=== PATIENT | male | born 1950 | race Two or more races ===

== ENCOUNTER → 2024-04-24 | Outpatient (CLI) | payer OTHER ==
--- NOTE | 2024-04-24 13:17 | DVHCARD ---
Cardiology Stress Test [place] Treadmill Stress Test [place] Referring MD: MD Charly Protocol: Bhavin (with cardiolite) Reason for referral: Chest Pain Target heart Rate:@85%: 124 Percent MPHR: 147 METS: 10.10 Resting Heart rate: 57 Resting Blood Pressure: 150/95 Exercise Heart Rate: 144 Exercise Blood Pressure: 184/75 Baseline EKG: Sinus bradycardia Stress EKG: Sinus tachycardia Functional Capacity: Good Normal Heart Rate Response: Adequate Blood Pressure Response: Hypertensive Clinical response: Non-ischemic Arrhythmia?: Yes (PACs) Cardiolite Injected?: Yes ST-T Changes: Non/Minimal Probability of Inducible Ische: Perfusion result pending Date of Service: Apr 24, 2024 Billing Provider: MARICRUZ ACKERMAN MD Cardiology Common Codes: PROCEDURE ONLY Treadmill W/Cardiolite Nuclear: [id number], [id number], PROMISE HANCOCK Apr 24, 2024 13:17
--- NOTE | 2024-04-24 22:31 | DVHSR ---
APPROVED REPORT Exam: Nuclear Stress Test Indication: Chest pain BMI: 0 Medical History Medical History: HTN Stress Test Details Stress Test: Exercise stress testing was performed using a Bhavin protocol. HR Resting HR: 57 bpmMax Heart Rate (APMHR): 147.784515 bpm Max HR Achieved: 144 bpmTarget HR (85% APMHR): 124.218924 bpm % of APMHR: 97.96 Recovery HR: 95 bpm BP Resting BP: 150/95 mmHg Recovery BP: 124/78 mmHg ECG Resting ECG: Sinus Bradycardia Clinical Reason for Termination: Completed protocol Exercise capacity: 10.10 METs Stress ECG Conclusion Resting ECG shows normal sinus rhythm. At peak stress level no dynamic EKG changes was noted to sugg est ischemia patient was able to exercise on standard Bhavin protocol reaching almost 8 minutes of tot al time.. Resting images shows near homogeneous uptake of radioactive tracer throughout the myocardium without evidence of myocardial infarction. Stress images shows near homogeneous uptake of radioactive tracer throughout the myocardium without e vidence of myocardial ischemia. Well-preserved left ventricular systolic function at 67%. Impression: Negative stress test for ischemia, low risk study. NM EXAM: Myocardial Perfusion REST/STRESS Imaging Protocol: Rest Tc-99m/Stress Tc-99m 1 day Resting Data Rest SPECT myocardial perfusion imaging was performed in supine position 60 minutes following the int ravenous injection of 12.3 mCi of Tc-99m Sestamibi. Time of rest injection: 1115 Time of rest imagin Administration Route: IV Administration Site: Right Hand Exercise Stress At peak stress, the patient was injected intravenously with 35mCi of Tc-99m Sestamibi. Time of stress injection: 1235 Time of stress imagin Administration Route: IV Administration Site: Right Hand Patient continued to exercise for 9 minute(s). Gated Stress SPECT was performed 30 minutes after stress injection. The images were gated to evaluate regional wall motion and calculate left ventricular ejection fracti on. Stress only was performed in the Supine position. Nuclear Conclusion ECG Findings: negative for ischemia Clinical Findings: negative for ischemia Nuclear Findings: negative for ischemia Exercise Capacity: not assessed Left Ventricular Function: normal Risk Study: low Resting ECG shows normal sinus rhythm. At peak stress level no dynamic EKG changes was noted to sugg est ischemia patient was able to exercise on standard Bhvain protocol reaching almost 8 minutes of tot al time.. Resting images shows near homogeneous uptake of radioactive tracer throughout the myocardium without evidence of myocardial infarction. Stress images shows near homogeneous uptake of radioactive tracer throughout the myocardium without e vidence of myocardial ischemia. Well-preserved left ventricular systolic function at 67%. Impression: Negative stress test for ischemia, low risk study.
== END | disposition home or self-care (01) ==
LOC: XYW 11:24
PROVIDERS: ATTEND Specialist
DX: I10 Essential (primary) hypertension (principal); R07.9 Chest pain, unspecified; Z79.899 Other long term (current) drug therapy
CPT/HCPCS: 78452; 93017; A9500